=== PATIENT | female | born 1990 | race Caucasian/White ===

== ENCOUNTER 2017-12-13 13:16 | Inpatient (IN) | payer MEDICAID, OTHER ==
[~2017-12-13] VITALS: Ht 162.6 cm; Wt 87.2 kg
[~2017-12-13 13:16] MED LIST: DIVA-78 PO; RISP2 PO
[2017-12-13 15:01] LABS: AMPHET/METH SCREEN,URINE POSITIVE (NEGATIVE); BARBITURATE SCREEN, URINE NEGATIVE (NEGATIVE); BENZODIAZEPINES SCREEN,URINE NEGATIVE (NEGATIVE); CANNABINOID SCREEN,URINE NEGATIVE (NEGATIVE); COCAINE SCREEN,URINE NEGATIVE (NEGATIVE); METHADONE SCREEN, URINE NEGATIVE (NEGATIVE); OPIATE SCREEN,URINE NEGATIVE (NEGATIVE)
[2017-12-13 15:02] LABS: PHENCYCLIDINE SCREEN,URINE NEGATIVE (NEGATIVE)
[2017-12-13] MEDS ORDERED: HALOPERIDOL LACTATE 5 MG/ML VIAL IM ONE (16:30)
[2017-12-13] MEDS ORDERED: DiphenhydrAMINE HCL 50 MG/ML VIAL IM ONE (16:30)
[2017-12-13] MEDS ORDERED: LORazepam 2 MG/ML VIAL IM ONE (16:30)
[2017-12-13] MEDS ORDERED: 0.9% SODIUM CHLORIDE 10 ML SYRINGE IVP PRN ×2 (18:30)
[2017-12-13] MEDS ORDERED: ONDANSETRON HCL 4 MG/2 ML VIAL IVP PRN ×2 (18:30)
[2017-12-13] MEDS ORDERED: ACETAMINOPHEN 325 MG TABLET PO PRN ×3 (18:30→20:30)
[2017-12-13 18:49] LABS: BASOPHILS % (AUTO) 0.5 % (0.0-2.0); HEMATOCRIT 38.2 % (36-46); LYMPHOCYTES # (AUTO) 1.9 K/uL (1.0-4.8); LYMPHOCYTES % (AUTO) 21.4 % (22.0-44.0); MEAN CORPUSCULAR HEMOGLOBIN 31.4 pg (26.0-34.0); MEAN CORPUSCULAR HGB CONC 34.2 G/dL (31.0-37.0); MEAN CORPUSCULAR VOLUME 92 fL (80-100); MONOCYTES # (AUTO) 0.9 K/uL (0.1-1.0); MONOCYTES % (AUTO) 10.3 % (2.0-9.0); NEUTROPHILS # (AUTO) 5.8 K/uL (1.8-7.7); NEUTROPHILS % (AUTO) 66.8 % (40.0-70.0); PLATELET COUNT (AUTO) 307 K/uL (150-450); RED BLOOD CELL COUNT(AUTO) 4.15 MIL/uL (4.00-5.20); RED CELL DISTRIBUTION WIDTH 14.6 % (11.5-14.5)
[2017-12-13 18:58] LABS: ANION GAP 7 mmol/L (8-16); CALCIUM, TOTAL 9.1 mg/dL (8.8-10.5); CARBON DIOXIDE 31 mmol/L (22-29); CHLORIDE 104 mmol/L (98-107); CREATININE 0.92 mg/dL (0.60-1.30); GLOMERULAR FILTR. RATE CALC > 60 mL/min (>60); GLUCOSE,RANDOM 103 mg/dL (70-110); POTASSIUM 3.7 mmol/L (3.5-5.1); SODIUM SERUM 142 mmol/L (136-145); UREA NITROGEN, BLOOD 7 mg/dL (7-18)
[2017-12-13 19:02] LABS: ALANINE AMINOTRANSFERASE 30 U/L (12-78); ALBUMIN 3.5 g/dL (3.4-5.0); ALKALINE PHOSPHATASE 68 U/L (46-116); ASPARTATE AMINOTRANSFERASE 38 U/L (15-37); BILIRUBIN,TOTAL 0.3 mg/dL (0.1-1.0); TOTAL PROTEIN, SERUM 7.3 g/dL (6.4-8.2)
[2017-12-13 19:53] LABS: HCG,QUANTITATIVE < 1 mIU/mL (0-6)
[2017-12-13] MEDS ORDERED: MAGNESIUM HYDROXIDE SUSPENSION 30 ML UDCUP PO PRN (20:30)
[2017-12-13] MEDS ORDERED: LORazepam 2 MG/ML VIAL IVP PRN (20:45)
[2017-12-13] MEDS ORDERED: SODIUM CHLORIDE 0.9% 1,000 ML IV ONE (20:45)
[2017-12-13] MEDS ORDERED: HALOPERIDOL LACTATE 5 MG/ML VIAL IVP PRN (20:45)
[2017-12-13 21:00] VITALS: BP 106/66
[2017-12-13] MEDS: DOCUSATE SODIUM 100 MG CAPSULE PO SCH (21:00)
[2017-12-14 00:22] VITALS: BP 114/84
[2017-12-14 05:16] VITALS: BP 92/75
[2017-12-14] MEDS: PANTOPRAZOLE SODIUM 40 MG DR TABLET PO SCH (08:20)
[2017-12-14] MEDS: DOCUSATE SODIUM 100 MG CAPSULE PO SCH ×2 (08:22→21:00)
[2017-12-14] MEDS: LORazepam 1 MG TABLET PO PRN ×2 (09:07→15:49)
[2017-12-14] MEDS: PYRIDOXINE HCL 50 MG TABLET PO SCH (15:14)
[2017-12-14] MEDS: RIFAMPIN 300 MG CAPSULE PO SCH (15:14)
[2017-12-14] MEDS: PYRAZINAMIDE 500 MG TABLET PO SCH (15:15)
[2017-12-14] MEDS: ISONIAZID 300 MG TABLET PO SCH (15:15)
[2017-12-14] MEDS ORDERED: DiphenhydrAMINE HCL 50 MG/ML VIAL IM ONE (18:30)
[2017-12-14] MEDS ORDERED: LORazepam 2 MG/ML VIAL IM ONE (18:30)
[2017-12-14] MEDS ORDERED: LORazepam 2 MG/ML VIAL ONE (18:35)
[2017-12-14 19:27] VITALS: BP 96/63
[2017-12-14 19:41] LABS: APPEARANCE,URINE TURBID (CLEAR); BILIRUBIN,URINE NEGATIVE (NEGATIVE); GLUCOSE, URINE (UA) NEGATIVE (NEGATIVE); KETONES,URINE TRACE mg/dL (NEGATIVE); LEUKOCYTE ESTERASE ,URINE NEGATIVE (NEGATIVE); NITRATE,URINE NEGATIVE (NEGATIVE); OCCULT BLOOD,URINE LARGE (NEGATIVE); PROTEIN,URINE POS 1+ (NEGATIVE); UROBILINOGEN,URINE 0.2 mg/dL (<=1.0)
[2017-12-14 20:19] LABS: WBC,URINE 0-2 /HPF (0-5)
[2017-12-14 20:20] LABS: AMORPHOUS SEDIMENT,UR Many /LPF (None Seen); BACTERIA,URINE Few /HPF (None Seen); SQUAMOUS EPITHELIAL CELL,UR Many /LPF (None Seen)
[2017-12-14] MEDS: BENAZEPRIL HCL 20 MG TABLET PO SCH (20:36)
[2017-12-14] MEDS ORDERED: HALOPERIDOL LACTATE 5 MG/ML VIAL IM PRN (20:45)
[2017-12-14] MEDS: DIVALPROEX SODIUM 500 MG DR TABLET PO SCH (21:00)
[2017-12-14] MEDS ORDERED: RisperiDONE 2 MG TABLET PO SCH (21:00)
[2017-12-14 23:35] VITALS: BP 101/65
[2017-12-15 06:33] VITALS: BP 125/75
[2017-12-15 07:00] VITALS: BP 108/70
[2017-12-15] MEDS: DIVALPROEX SODIUM 500 MG DR TABLET PO SCH ×2 (09:00→20:11)
[2017-12-15] MEDS: DOCUSATE SODIUM 100 MG CAPSULE PO SCH ×2 (09:00→20:12)
[2017-12-15] MEDS: PYRIDOXINE HCL 50 MG TABLET PO SCH ×2 (09:00→11:06)
[2017-12-15] MEDS: RIFAMPIN 300 MG CAPSULE PO SCH (09:00)
[2017-12-15] MEDS: PYRAZINAMIDE 500 MG TABLET PO SCH ×2 (09:00→11:07)
[2017-12-15] MEDS: PANTOPRAZOLE SODIUM 40 MG DR TABLET PO SCH ×2 (09:00→11:07)
[2017-12-15] MEDS: ISONIAZID 300 MG TABLET PO SCH ×2 (09:00→11:06)
[2017-12-15] MEDS: LORazepam 1 MG TABLET PO PRN ×2 (11:09→15:39)
[2017-12-15 11:45] VITALS: BP 112/72
[2017-12-15] MEDS ORDERED: PALIPERIDONE PALMITATE 234 MG/1.5 ML SYRINGE IM ONE (17:45)
[2017-12-15] MEDS ORDERED: PALIPERIDONE 1.5 MG ER TABLET PO PRN (17:45)
[2017-12-15] MEDS: DOLUTEGRAVIR SODIUM 50 MG TABLET PO SCH (20:11)
[2017-12-15] MEDS: BENAZEPRIL HCL 20 MG TABLET PO SCH (20:12)
[2017-12-15] MEDS ORDERED: LORazepam 2 MG TABLET PO PRN (21:00)
[2017-12-15] MEDS ORDERED: PALIPERIDONE 3 MG ER TABLET PO SCH (21:00)
[2017-12-16 05:09] VITALS: BP 108/60
[2017-12-16] MEDS: PYRIDOXINE HCL 50 MG TABLET PO SCH (08:57)
[2017-12-16] MEDS: PANTOPRAZOLE SODIUM 40 MG DR TABLET PO SCH (08:57)
[2017-12-16] MEDS: PYRAZINAMIDE 500 MG TABLET PO SCH (08:57)
[2017-12-16] MEDS: DIVALPROEX SODIUM 500 MG DR TABLET PO SCH (08:57)
[2017-12-16] MEDS: DOLUTEGRAVIR SODIUM 50 MG TABLET PO SCH (08:57)
[2017-12-16] MEDS: ISONIAZID 300 MG TABLET PO SCH (08:57)
[2017-12-16] MEDS: DOCUSATE SODIUM 100 MG CAPSULE PO SCH (09:00)
[2017-12-16] MEDS ORDERED: RIFABUTIN 150 MG CAPSULE PO SCH (09:00)
[2017-12-16 11:49] VITALS: BP 115/75
[2017-12-17 01:20] LABS: QUANTIFERON+, Nil Value 1.23 IU/mL; QUANTIFERON+,Mitogen Value >10.00 IU/mL; QUANTIFERON+,TB1 Antigen Value 5.77 IU/mL; QUANTIFERON+,TB2 Antigen Value 8.62 IU/mL; QUANTIFERON, TB GOLD PLUS Positive (Negative)
[2017-12-19] MEDS ORDERED: PALIPERIDONE PALMITATE 156 MG/ML SYRINGE IM ONE (09:00)
== END 2017-12-16 12:35 | disposition short-term general hospital (02) | DRG 137 ==
LOC: EMS 13:17 → 5N 18:50 → UNDOADMIN 18:50 → 6N 18:50
PROVIDERS: ADMIT Internal Medicine; ATTEND Internal Medicine
DX: A15.0 Tuberculosis of lung (principal); R45.851 Suicidal ideations; F25.9 Schizoaffective disorder, unspecified; E66.9 Obesity, unspecified; F19.10 Other psychoactive substance abuse, uncomplicated; Z86.11 Personal history of tuberculosis; F41.9 Anxiety disorder, unspecified; F15.10 Other stimulant abuse, uncomplicated; F17.210 Nicotine dependence, cigarettes, uncomplicated; F60.3 Borderline personality disorder; Z91.19 Patient's noncompliance with other medical treatment and regimen; Z59.0 Homelessness; Z79.899 Other long term (current) drug therapy; Z68.33 Body mass index [BMI] 33.0-33.9, adult
CPT/HCPCS: 86480; 96372; G0378; G0480; J1200; J1630; J2060; J3230; J7030

== ENCOUNTER 2017-12-16 12:20 | Inpatient (IN) | payer MEDICAID ==
[~2017-12-16] VITALS: Ht 157.5 cm; Wt 87.4 kg
[2017-12-16] MEDS ORDERED: PROMETHAZINE HCL 25 MG TABLET PO PRN (14:15)
[2017-12-16] MEDS ORDERED: MAGNESIUM HYDROXIDE SUSPENSION 30 ML UDCUP PO PRN (14:15)
[2017-12-16] MEDS ORDERED: LOPERAMIDE HCL 2 MG CAPSULE PO PRN (14:15)
[2017-12-16] MEDS ORDERED: MAG HYDROX/AL HYDROX/SIMETH ES 30 ML SUSPENSION UDCUP PO PRN (14:15)
[2017-12-16] MEDS ORDERED: ZOLPIDEM TARTRATE 10 MG TABLET PO PRN (14:15)
[2017-12-16] MEDS ORDERED: GuaiFENesin/D-METHORPHAN [SUGAR-FREE] 200-20MG/10 ML SYRUP UDCUP PO PRN (14:15)
[2017-12-16] MEDS ORDERED: HydrOXYzine PAMOATE 50 MG CAPSULE PO PRN (14:15)
[2017-12-16] MEDS ORDERED: ACETAMINOPHEN 325 MG TABLET PO PRN (14:15)
[2017-12-16] MEDS ORDERED: PALIPERIDONE 1.5 MG ER TABLET PO PRN (14:15)
[2017-12-16 14:24] VITALS: BP 141/84
[2017-12-16] MEDS: DIVALPROEX SODIUM 500 MG ER TABLET PO SCH ×2 (14:53→16:35)
[2017-12-16] MEDS: LORazepam 2 MG TABLET PO PRN (15:16)
[2017-12-16] MEDS ORDERED: DOCUSATE SODIUM 100 MG CAPSULE PO PRN (15:30)
[2017-12-16 16:00] VITALS: BP 126/71
[2017-12-16] MEDS: THIAMINE HCL 100 MG TABLET PO SCH (16:29)
[2017-12-16] MEDS: NICOTINE 21 MG/24 HOUR PATCH TD SCH (16:34)
[2017-12-16] MEDS ORDERED: BENAZEPRIL HCL 10 MG TABLET PO SCH (21:00)
[2017-12-16] MEDS ORDERED: BENAZEPRIL HCL 20 MG TABLET PO SCH (21:00)
[2017-12-17 06:42] VITALS: BP 122/64
[2017-12-17] MEDS: THIAMINE HCL 100 MG TABLET PO SCH ×2 (08:40→17:00)
[2017-12-17] MEDS: DIVALPROEX SODIUM 500 MG ER TABLET PO SCH ×3 (08:40→17:00)
[2017-12-17] MEDS: DOLUTEGRAVIR SODIUM 50 MG TABLET PO SCH ×2 (08:48→17:00)
[2017-12-17] MEDS: NICOTINE 21 MG/24 HOUR PATCH TD SCH (08:49)
[2017-12-17] MEDS: LORazepam 2 MG TABLET PO PRN (08:57)
[2017-12-17] MEDS ORDERED: ETHAMBUTOL HCL 400 MG TABLET PO SCH (09:00)
[2017-12-17] MEDS ORDERED: PANTOPRAZOLE SODIUM 40 MG DR TABLET PO SCH (09:00)
[2017-12-17] MEDS ORDERED: NALTREXONE HCL 50 MG TABLET PO SCH (09:00)
[2017-12-17] MEDS ORDERED: RIFABUTIN 150 MG CAPSULE PO SCH (09:00)
[2017-12-17] MEDS ORDERED: PYRIDOXINE HCL 50 MG TABLET PO SCH (09:00)
[2017-12-17] MEDS ORDERED: EMTRICITABINE/TENOFOVIR 200-300 MG TABLET PO SCH (09:00)
[2017-12-17] MEDS ORDERED: MULTIVITAMINS WITH MINERALS, THERAPEUTIC TABLET PO SCH (09:00)
[2017-12-17] MEDS ORDERED: ISONIAZID 300 MG TABLET PO SCH (09:00)
[2017-12-17] MEDS ORDERED: DOLUTEGRAVIR SODIUM 50 MG TABLET PO SCH (09:00)
[2017-12-17] MEDS ORDERED: FOLIC ACID 1 MG TABLET PO SCH (09:00)
[2017-12-17] MEDS ORDERED: PYRAZINAMIDE 500 MG TABLET PO SCH ×2 (09:00)
[2017-12-17 16:31] VITALS: BP 111/68
[2017-12-17] MEDS ORDERED: CEPHALEXIN MONOHYDRATE 500 MG CAPSULE PO SCH (17:00)
[2017-12-18 08:28] LABS: APPEARANCE,URINE CLOUDY (CLEAR); BILIRUBIN,URINE NEGATIVE (NEGATIVE); GLUCOSE, URINE (UA) NEGATIVE (NEGATIVE); KETONES,URINE TRACE mg/dL (NEGATIVE); NITRATE,URINE NEGATIVE (NEGATIVE); PH,URINE 6.5 (5.0-8.0); PROTEIN,URINE NEGATIVE (NEGATIVE); UROBILINOGEN,URINE 0.2 mg/dL (<=1.0)
[2017-12-18 08:31] LABS: AMPHET/METH SCREEN,URINE NEGATIVE (NEGATIVE); BARBITURATE SCREEN, URINE NEGATIVE (NEGATIVE); BENZODIAZEPINES SCREEN,URINE NEGATIVE (NEGATIVE); CANNABINOID SCREEN,URINE NEGATIVE (NEGATIVE); COCAINE SCREEN,URINE NEGATIVE (NEGATIVE); METHADONE SCREEN, URINE NEGATIVE (NEGATIVE); OPIATE SCREEN,URINE NEGATIVE (NEGATIVE)
[2017-12-18 08:39] LABS: BACTERIA,URINE Moderate /HPF (None Seen); LEUKOCYTE ESTERASE ,URINE SMALL (NEGATIVE); OCCULT BLOOD,URINE MODERATE (NEGATIVE); PHENCYCLIDINE SCREEN,URINE NEGATIVE (NEGATIVE)
[2017-12-18 08:40] LABS: SQUAMOUS EPITHELIAL CELL,UR Many /LPF (None Seen)
== END 2017-12-17 17:35 | disposition home or self-care (01) | DRG 750 ==
LOC: B3A 12:20
PROVIDERS: ADMIT Psychiatry & Neurology Psychiatry; ATTEND Psychiatry & Neurology Psychiatry
DX: F25.9 Schizoaffective disorder, unspecified (principal); R45.851 Suicidal ideations; Z59.0 Homelessness; R76.11 Nonspecific reaction to tuberculin skin test without active tuberculosis; Z53.21 Procedure and treatment not carried out due to patient leaving prior to being seen by health care provider; Z81.1 Family history of alcohol abuse and dependence
CPT/HCPCS: 80307; 87081; 87086

== ENCOUNTER 2019-01-11 23:23 | Inpatient (IN) | payer MEDICAID, OTHER ==
[~2019-01-11] VITALS: Ht 162.6 cm; Wt 78.6 kg
[2019-01-11] MEDS ORDERED: EMTR1TAB13 PO (23:55)
[2019-01-11] MEDS ORDERED: PALI156D IM (23:55)
[2019-01-11] MEDS ORDERED: DOLU10TA PO (23:55)
[2019-01-12] VITALS (8 sets, daily range): BP systolic 83–119; BP diastolic 48–68
[2019-01-12] MEDS ORDERED: MetroNIDAZOLE 250 MG TABLET PO ONE (00:15)
[2019-01-12 01:03] LABS: BASOPHILS % (AUTO) 0.2 % (0.0-2.0); EOSINOPHILS % (AUTO) 1.1 % (1.0-6.0); HEMATOCRIT 37.7 % (36-46); HEMOGLOBIN 12.9 g/dL (12.0-16.0); LYMPHOCYTES # (AUTO) 2.5 K/uL (1.0-4.8); LYMPHOCYTES % (AUTO) 37.5 % (22.0-44.0); MEAN CORPUSCULAR HEMOGLOBIN 31.9 pg (26.0-34.0); MEAN CORPUSCULAR HGB CONC 34.3 G/dL (31.0-37.0); MEAN CORPUSCULAR VOLUME 93 fL (80-100); MONOCYTES # (AUTO) 0.9 K/uL (0.1-1.0); MONOCYTES % (AUTO) 13.4 % (2.0-9.0); NEUTROPHILS # (AUTO) 3.2 K/uL (1.8-7.7); NEUTROPHILS % (AUTO) 47.8 % (40.0-70.0); PLATELET COUNT (AUTO) 237 K/uL (150-450); RED BLOOD CELL COUNT(AUTO) 4.04 MIL/uL (4.00-5.20); RED CELL DISTRIBUTION WIDTH 12.8 % (11.5-14.5)
[2019-01-12 01:11] LABS: ANION GAP 7 mmol/L (8-16); CALCIUM, TOTAL 8.3 mg/dL (8.8-10.5); CARBON DIOXIDE 28 mmol/L (22-29); CHLORIDE 104 mmol/L (98-107); CREATININE 0.86 mg/dL (0.60-1.30); GLOMERULAR FILTR. RATE CALC > 60 mL/min (>60); GLUCOSE,RANDOM 82 mg/dL (70-110); POTASSIUM 3.5 mmol/L (3.5-5.1); SODIUM SERUM 139 mmol/L (136-145); UREA NITROGEN, BLOOD 13 mg/dL (7-18)
[2019-01-12 01:26] LABS: ALANINE AMINOTRANSFERASE 22 U/L (12-78); ALBUMIN 3.3 g/dL (3.4-5.0); ALKALINE PHOSPHATASE 51 U/L (46-116); ASPARTATE AMINOTRANSFERASE 18 U/L (15-37); BILIRUBIN,TOTAL 0.2 mg/dL (0.1-1.0); HCG,QUANTITATIVE < 1 mIU/mL (0-6); TOTAL PROTEIN, SERUM 6.7 g/dL (6.4-8.2)
[2019-01-12] MEDS ORDERED: 0.9% SODIUM CHLORIDE 10 ML SYRINGE IVP PRN (04:00)
[2019-01-12] MEDS ORDERED: ONDANSETRON HCL 4 MG/2 ML VIAL IVP PRN ×2 (04:00→12:30)
[2019-01-12] MEDS ORDERED: OxyCODONE HCL/ACETAMINOPHEN 5-325 MG TABLET PO PRN ×2 (04:00)
[2019-01-12] MEDS ORDERED: INFLUENZA VIRUS VACCINE QVS 2019-20 (3YR+)/PF 60 MCG/0.5 ML SYRINGE IM ONE (04:45)
[2019-01-12] MEDS ORDERED: PNEUMOCOCCAL VACCINE POLYVALENT 0.5 ML VIAL [PPSV23] IM ONE (04:45)
[2019-01-12] MEDS ORDERED: DOCUSATE SODIUM 100 MG CAPSULE PO SCH (09:00)
[2019-01-12] MEDS: SODIUM CHLORIDE 0.9% 1,000 ML IV SCH (12:30)
[2019-01-12] MEDS ORDERED: DOCUSATE SODIUM 100 MG CAPSULE PO PRN (12:30)
[2019-01-12] MEDS ORDERED: ACETAMINOPHEN 325 MG TABLET PO PRN (12:30)
[2019-01-12] MEDS: DOLUTEGRAVIR SODIUM 50 MG TABLET PO SCH (20:14)
[2019-01-12] MEDS: FAMOTIDINE 20 MG TABLET PO SCH (20:14)
[2019-01-12] MEDS ORDERED: EMTRICITABINE/TENOFOVIR 200-300 MG TABLET PO SCH (21:00)
[2019-01-12] MEDS ORDERED: [UNRECOGNIZED DRUG - OTHER] PO SCH (21:00)
[2019-01-13] MEDS: SODIUM CHLORIDE 0.9% 1,000 ML IV SCH (01:46)
[2019-01-13 05:11] VITALS: BP 89/58
[2019-01-13] MEDS: DOLUTEGRAVIR SODIUM 50 MG TABLET PO SCH (08:51)
[2019-01-13] MEDS: FAMOTIDINE 20 MG TABLET PO SCH (08:52)
[2019-01-13 11:25] VITALS: BP 97/40
[2019-01-13] MEDS ORDERED: ACYC200C PO ×2 (12:27→12:39)
[2019-01-13] MEDS ORDERED: CEPH500 PO ×2 (12:27→12:37)
[2019-01-15 20:29] LABS: QUANTIFERON+, Nil Value 0.03 IU/mL; QUANTIFERON+,Mitogen Value >10.00 IU/mL; QUANTIFERON+,TB1 Antigen Value >10.00 IU/mL; QUANTIFERON, TB GOLD PLUS Positive (Negative)
[2019-01-17 16:38] LABS: LEGIONELLA PNEUMO AG URINE Negative (Negative)
[2019-01-18 13:08] LABS: ORGANISM ID Not indicated.; S PNEUMO SOURCE Urine; STREP PNEUMONIAE AG URINE Negative (Negative); STREP.PNEUMO BODY FLUID CULT. Not Indicated
[2019-01-22] MEDS ORDERED: PALIPERIDONE PALMITATE 156 MG/ML SYRINGE IM SCH (09:00)
== END 2019-01-13 13:26 | DRG 690 ==
LOC: EMS 23:24 → 6S 01-12 01:00
PROVIDERS: ADMIT Internal Medicine; ATTEND Internal Medicine
PROC: 3E0234Z Introduction of Serum, Toxoid and Vaccine into Muscle, Percutaneous Approach (ICD-10-PCS; principal; 2019-01-12)
DX: N39.0 Urinary tract infection, site not specified (principal); E44.0 Moderate protein-calorie malnutrition; F31.9 Bipolar disorder, unspecified; F41.9 Anxiety disorder, unspecified; Z86.11 Personal history of tuberculosis; Z68.29 Body mass index [BMI] 29.0-29.9, adult; Z23 Encounter for immunization; A60.00 Herpesviral infection of urogenital system, unspecified; F17.210 Nicotine dependence, cigarettes, uncomplicated; F25.9 Schizoaffective disorder, unspecified; F60.3 Borderline personality disorder; Z59.0 Homelessness
CPT/HCPCS: 86480; 86738; 87015; 87070; 87205; 87206; 87449; 87556; 87899

== ENCOUNTER 2019-02-12 19:05 | Inpatient (IN) | payer OTHER ==
[~2019-02-12] VITALS: Ht 165.1 cm; Wt 81.8 kg
[~2019-02-12 19:05] MED LIST changes: +ACYC200C PO; +CEPH500 PO; -DIVA-78 PO; -RISP2 PO
[2019-02-12] MEDS ORDERED: DOLU50TA PO (19:27)
[2019-02-12] MEDS ORDERED: TENO25TA PO (19:27)
[2019-02-12] MEDS ORDERED: ACYC200C PO (19:27)
[2019-02-12] MEDS ORDERED: IBUP-2071 PO ×2 (19:27)
[2019-02-12] MEDS ORDERED: FLUC150T66 PO (19:27)
[2019-02-12] MEDS ORDERED: TENO300 PO (19:27)
[2019-02-12] MEDS ORDERED: EPIV150 PO (19:27)
[2019-02-12] MEDS ORDERED: BENZ1TAB10 PO (19:27)
[2019-02-12 21:00] VITALS: BP 124/68
[2019-02-12] MEDS ORDERED: ONDANSETRON HCL 4 MG TABLET PO PRN (22:00)
[2019-02-12] MEDS ORDERED: DOCUSATE SODIUM 100 MG CAPSULE PO PRN (22:00)
[2019-02-12] MEDS ORDERED: PETROLATUM,WHITE 28 GM JELLY TP PRN (22:00)
[2019-02-12] MEDS ORDERED: IBUPROFEN 400 MG TABLET PO PRN (22:00)
[2019-02-12] MEDS ORDERED: LOPERAMIDE HCL 2 MG CAPSULE PO PRN (22:00)
[2019-02-12] MEDS ORDERED: ALBUTEROL SULFATE HFA 90 MCG/PUFF 8 GM INHALER IH PRN (22:00)
[2019-02-12] MEDS ORDERED: ACETAMINOPHEN 325 MG TABLET PO PRN (22:00)
[2019-02-12] MEDS ORDERED: MAGNESIUM HYDROXIDE SUSPENSION 30 ML UDCUP PO PRN (22:00)
[2019-02-12] MEDS ORDERED: NICOTINE 14 MG/24 HOUR PATCH TD PRN (22:00)
[2019-02-12] MEDS ORDERED: MAG HYDROX/AL HYDROX/SIMETH ES 30 ML SUSPENSION UDCUP PO PRN (22:00)
[2019-02-12] MEDS ORDERED: GuaiFENesin/D-METHORPHAN [SUGAR-FREE] 200-20MG/10 ML SYRUP UDCUP PO PRN (22:00)
[2019-02-12] MEDS ORDERED: CloNIDine HCL 0.1 MG TABLET PO PRN (22:00)
[2019-02-13 04:00] VITALS: BP 126/72
[2019-02-13] MEDS: ACYCLOVIR 200 MG CAPSULE PO SCH ×3 (08:33→20:08)
[2019-02-13] MEDS: DOLUTEGRAVIR SODIUM 50 MG TABLET PO SCH (08:33)
[2019-02-13 08:36] VITALS: BP 89/56
[2019-02-13 12:45] VITALS: BP 95/59
[2019-02-13 15:37] VITALS: BP 91/45
[2019-02-13 17:48] LABS: APPEARANCE,URINE CLEAR (CLEAR); BILIRUBIN,URINE NEGATIVE (NEGATIVE); GLUCOSE, URINE (UA) NEGATIVE (NEGATIVE); KETONES,URINE NEGATIVE (NEGATIVE); LEUKOCYTE ESTERASE ,URINE NEGATIVE (NEGATIVE); NITRATE,URINE NEGATIVE (NEGATIVE); OCCULT BLOOD,URINE NEGATIVE (NEGATIVE); PROTEIN,URINE NEGATIVE (NEGATIVE); UROBILINOGEN,URINE 0.2 mg/dL (<=1.0)
[2019-02-13 17:49] LABS: BACTERIA,URINE None Seen /HPF (None Seen); RBC,URINE None Seen /HPF (0-2); WBC,URINE None Seen /HPF (0-5)
[2019-02-13 17:51] LABS: AMPHET/METH SCREEN,URINE NEGATIVE (NEGATIVE); BARBITURATE SCREEN, URINE NEGATIVE (NEGATIVE); BENZODIAZEPINES SCREEN,URINE NEGATIVE (NEGATIVE); CANNABINOID SCREEN,URINE NEGATIVE (NEGATIVE); COCAINE SCREEN,URINE NEGATIVE (NEGATIVE); METHADONE SCREEN, URINE NEGATIVE (NEGATIVE); OPIATE SCREEN,URINE NEGATIVE (NEGATIVE)
[2019-02-13 17:52] LABS: PHENCYCLIDINE SCREEN,URINE NEGATIVE (NEGATIVE)
[2019-02-13 19:16] VITALS: BP 100/60
[2019-02-13] MEDS: MetroNIDAZOLE 500 MG TABLET PO SCH (21:44)
[2019-02-14 06:04] VITALS: BP 91/66
[2019-02-14] MEDS: DOLUTEGRAVIR SODIUM 50 MG TABLET PO SCH (08:36)
[2019-02-14] MEDS: MetroNIDAZOLE 500 MG TABLET PO SCH ×2 (08:36→19:48)
[2019-02-14] MEDS: ACYCLOVIR 200 MG CAPSULE PO SCH ×3 (08:36→19:48)
[2019-02-14 08:54] VITALS: BP 89/45
[2019-02-14 12:02] VITALS: BP 93/50
[2019-02-14 16:04] VITALS: BP 96/54
[2019-02-14] MEDS ORDERED: INFLUENZA VIRUS VACCINE QVS 2019-20 (3YR+)/PF 60 MCG/0.5 ML SYRINGE IM ONE (16:45)
[2019-02-14 19:45] VITALS: BP 98/48
[2019-02-15 06:00] VITALS: BP 89/48
[2019-02-15] MEDS: DOLUTEGRAVIR SODIUM 50 MG TABLET PO SCH (08:35)
[2019-02-15] MEDS: ACYCLOVIR 200 MG CAPSULE PO SCH ×2 (08:35→15:38)
[2019-02-15] MEDS: MetroNIDAZOLE 500 MG TABLET PO SCH (08:35)
[2019-02-15] MEDS ORDERED: CefTRIAXone 1 GM/DEXTROSE 50 ML IV SCH (11:00)
[2019-02-15] MEDS ORDERED: CEPH-582 PO (11:23)
[2019-02-15] MEDS ORDERED: METR500T PO (11:25)
== END 2019-02-15 17:50 | DRG 975 ==
LOC: EMS 19:11 → 6S 20:57
PROVIDERS: ADMIT Psychiatry & Neurology Child & Adolescent Psychiatry; ATTEND Internal Medicine
DX: B20 Human immunodeficiency virus [HIV] disease (principal); N17.9 Acute kidney failure, unspecified; F29 Unspecified psychosis not due to a substance or known physiological condition; R45.851 Suicidal ideations; B19.10 Unspecified viral hepatitis B without hepatic coma; E86.0 Dehydration; F31.9 Bipolar disorder, unspecified; F60.3 Borderline personality disorder; L29.2 Pruritus vulvae; F41.9 Anxiety disorder, unspecified; B19.20 Unspecified viral hepatitis C without hepatic coma; F15.10 Other stimulant abuse, uncomplicated; Z91.19 Patient's noncompliance with other medical treatment and regimen; Z87.891 Personal history of nicotine dependence; Z86.11 Personal history of tuberculosis; Z87.440 Personal history of urinary (tract) infections; Z79.899 Other long term (current) drug therapy; Z59.0 Homelessness
CPT/HCPCS: 87070; 87086; 87205; J0696